=== PATIENT | female | born 1950 | race Two or more races ===

== ENCOUNTER 2025-05-10 14:11 | Outpatient (CLI) | payer MEDICARE, MEDICAID | END 2025-05-10 23:59 | disposition home or self-care (01) | LOC: RAD 14:11 | PROVIDERS: ATTEND Internal Medicine Interventional Cardiology | DX: R06.02 Shortness of breath (principal) | CPT/HCPCS: 71045-TC ==

== ENCOUNTER 2025-05-16 07:29 | Inpatient (IN) | payer MEDICARE, OTHER ==
[~2025-05-16] VITALS: Ht 152.4 cm; Wt 70.8 kg
[~2025-05-16 07:29] MED LIST: ANESTHESIA TRAY IN PYXIS 1 EA TRAY MC ONE; LIDOCAINE 2%-EPI 1:100,000 30 ML VIAL ONE; OXYMETAZOLINE HCL NASAL SPRAY 30 ML BOTTLE NS ONE; VANCOMYCIN 1 GM VIAL ONE; dexaMETHasone SOD PHOSPHATE 2 ML ONE
[2025-05-16] MEDS ORDERED: LABETALOL HCL IV 100MG VIAL ONE (09:15)
[2025-05-16] MEDS ORDERED: GELATIN SPONGE,ABSORBABLE 1 EA SPONGE TP ONE (09:39)
[2025-05-16] MEDS ORDERED: CELLULOSE,OXIDIZED 1 EA PACK MC ONE (09:39)
[2025-05-16] MEDS ORDERED: CELLULOSE,OXIDIZED 1 PKT EACH MC ONE ×2 (09:39→11:07)
[2025-05-16] MEDS ORDERED: ROCURONIUM BROMIDE 50 MG/5 ML ONE (10:19)
[2025-05-16] MEDS ORDERED: BUPIVACAINE 0.5 % PF 150 MG/30 ML VIAL ONE ×2 (11:20)
[2025-05-16] MEDS ORDERED: GELATIN SPONGE,ABSORBABLE 1 SPONGE SPONGE TP ONE ×2 (11:30)
[2025-05-16 13:33] VITALS: BP 125/78; TEMP 98.2
[2025-05-16 14:00] VITALS: BP 106/53; TEMP 98.6; O2SAT 93
[2025-05-16] MEDS: HYDROMORPHONE 1 MG/1 ML DISP.SYRIN IV PRN (14:30)
[2025-05-16] MEDS: IV NS 0.9% 1,000 ML IV PRN (14:36)
[2025-05-16 16:00] VITALS: BP 119/53; TEMP 97.9; O2SAT 95
[2025-05-16] MEDS: P-EPHED SUL/LORATADINE (24H) 1 TAB.SR.24H PO SCH (16:28)
[2025-05-16] MEDS: ZOSYN IVPB 3.375 G in IV D5W 50ml IV SCH (16:28)
[2025-05-16] MEDS ORDERED: MAGNESIUM HYDROXIDE 30 ML UDC PO PRN (17:00)
[2025-05-16] MEDS: VANCOMYCIN 1 GM in IV D5W 250ml IV SCH (19:40)
[2025-05-16] MEDS: ONDANSETRON HCL/PF 4 MG/2 ML VIAL IV PRN (19:45)
[2025-05-16 20:00] VITALS: BP 134/73; TEMP 98.6; O2SAT 96
[2025-05-16] MEDS: FENTANYL PF 100MCG/2ML AMPUL IV ONE (23:34)
[2025-05-17 06:37] LABS: PLATELET COUNT (AUTO) 228 K/uL (150-450); RED BLOOD CELL COUNT(AUTO) 3.47 MIL/uL (4.0-5.2); RED CELL DISTRIBUTION WIDTH 14.3 % (11.5-15.0); WHITE BLOOD COUNT (AUTO) 10.9 K/uL (4.3-11.0)
[2025-05-17 07:00] VITALS: BP 98/48; TEMP 97.9; O2SAT 94
[2025-05-17 07:41] LABS: CALCIUM, SERUM 8.8 mg/dL (8.5-10.1); CREATININE 0.7 mg/dL (0.6-1.3); PHOSPHORUS 2.6 mg/dL (2.5-4.9); SODIUM SERUM 139.0 mmol/L (136-145); UREA NITROGEN, BLOOD 20.0 mg/dL (7-18)
[2025-05-17] MEDS: PANTOPRAZOLE 40 MG TABLET.DR PO SCH (08:12)
[2025-05-17] MEDS: OLMESARTAN HCTZ PO SCH (08:13)
[2025-05-17] MEDS: ACETAMINOPHEN 325 MG TABLET PO PRN (11:13)
[2025-05-17] MEDS ORDERED: HYDROCODONE/APAP 10/325MG TABLET PO PRN (11:30)
== END 2025-05-17 12:25 | disposition home or self-care (01) | DRG 142 ==
LOC: DS 07:29 → MED 14:13
PROVIDERS: ADMIT Nurse Practitioner Family; ATTEND Nurse Practitioner Family
PROC: 0NUT07Z Supplement Right Mandible with Autologous Tissue Substitute, Open Approach (ICD-10-PCS; 2025-05-16)
PROC: 0N5R0ZZ Destruction of Maxilla, Open Approach (ICD-10-PCS; 2025-05-16)
PROC: 0N5T0ZZ Destruction of Right Mandible, Open Approach (ICD-10-PCS; 2025-05-16)
PROC: 09BQ0ZZ Excision of Right Maxillary Sinus, Open Approach (ICD-10-PCS; 2025-05-16)
PROC: 0NUR07Z Supplement Maxilla with Autologous Tissue Substitute, Open Approach (ICD-10-PCS; 2025-05-16)
PROC: 0NST0ZZ Reposition Right Mandible, Open Approach (ICD-10-PCS; 2025-05-16)
PROC: 0NSR04Z Reposition Maxilla with Internal Fixation Device, Open Approach (ICD-10-PCS; principal; 2025-05-16 08:30)
DX: S02.40DA Maxillary fracture, left side, initial encounter for closed fracture (principal); M27.2 Inflammatory conditions of jaws; S02.609A Fracture of mandible, unspecified, initial encounter for closed fracture; S02.40CA Maxillary fracture, right side, initial encounter for closed fracture; D16.4 Benign neoplasm of bones of skull and face; I10 Essential (primary) hypertension; D64.9 Anemia, unspecified; G89.29 Other chronic pain; X58.XXXA Exposure to other specified factors, initial encounter; Y92.9 Unspecified place or not applicable; J32.9 Chronic sinusitis, unspecified; M85.60 Other cyst of bone, unspecified site; J32.0 Chronic maxillary sinusitis; M89.9 Disorder of bone, unspecified
CPT/HCPCS: 36415; 80048-TC; 83735-TC; 84100-TC; 85025-TC; A4223; C1713; G0378; J0360; J0690; J1100; J1171; J2405; J2543; J2704; J3010; J3373; J3490; J7030; J7060